=== PATIENT | female | born 1960 | race Two or more races ===

== ENCOUNTER 2017-09-02 02:07 | Emergency (ER) | payer OTHER ==
[2017-09-02 02:39] VITALS: TEMP 97.5; BMI 23.6
--- NOTE | 2017-09-02 02:58 | PDOC ---
History of Present Illness - General Chief Complaint: Blood Pressure Problem Stated Complaint: HIGH BLOOD PRESSURE Time Seen by Provider: 09/02/17 02:27 - History of Present Illness Initial Comments: 09/02/17 02:57 56 yo F with h/o HTN, NIDDM, and HLD who presents with chest pain. Patient reports waking up at 0100 with non radiating left sided burning chest pain, and diaphoresis (now resolved). Pain is non exertional and not associated with SOB. Denies leg swelling, numbness/tingling, vision changes, weakness, hemoptysis, pleuritic chest pain, h/o trauma or surgery within the last 6 weeks. No recent traveling. No h/o PA, Stent, CABG. Denies h/o DVT/PE. Past History - Past Medical History Allergies/Adverse Reactions: Allergies Allergy/AdvReac Type Severity Reaction Status Date / Time No Known Allergies Allergy Verified 09/02/17 02:37 Home Medications: Ambulatory Orders Lisinopril [Prinivil] 10 mg PO DAILY 09/02/17 - Suicide/Smoking/Psychosocial Hx Smoking History: Never smoked Information on smoking cessation initiated: No Hx Alcohol Use: No Drug/Substance Use Hx: No Review of Systems - Review of Systems Comments:: 09/02/17 03:29 GENERAL/CONSTITUTIONAL: No fever or chills. No weakness. HEAD, EYES, EARS, NOSE AND THROAT: No change in vision. No ear pain or discharge. No sore throat.- CARDIOVASCULAR:+ L sided chest pain. No SOB RESPIRATORY: No cough, wheezing, or hemoptysis. GASTROINTESTINAL: No nausea, vomiting, diarrhea or constipation. GENITOURINARY: No dysuria, frequency, or change in urination. MUSCULOSKELETAL: No joint or muscle swelling or pain. No neck or back pain. SKIN: No rash NEUROLOGIC: No headache, vertigo, loss of consciousness, or change in strength/ sensation. ENDOCRINE: No increased thirst. No abnormal weight change HEMATOLOGIC/LYMPHATIC: No anemia, easy bleeding, or history of blood clots. ALLERGIC/IMMUNOLOGIC: No hives or skin allergy. *Physical Exam - Vital Signs Last Vital Signs Temp Pulse Resp BP Pulse Ox 97.5 F L 99 H 16 174/113 99 09/02/17 02:37 09/02/17 02:37 09/02/17 02:37 09/02/17 02:37 09/02/17 02:37 - Physical Exam Comments: 09/02/17 03:29 GENERAL: Awake, alert, and fully oriented, in no acute distress HEAD: No signs of trauma, normocephalic, atraumatic EYES: PERRLA, EOMI, sclera anicteric, conjunctiva clear ENT: Auricles normal inspection, hearing grossly normal, nares patent, oropharynx clear without exudates. Moist mucosa NECK: Normal ROM, supple, no lymphadenopathy, JVD, or masses LUNGS: No distress, speaks full sentences, clear to auscultation bilaterally HEART: Regular rate and rhythm, normal S1 and S2, no murmurs, rubs or gallops, peripheral pulses normal and equal bilaterally. ABDOMEN: Soft, nontender, normoactive bowel sounds. No guarding, no rebound. No masses EXTREMITIES : Normal inspection, Normal range of motion, no edema. No clubbing or cyanosis. NEUROLOGICAL: Cranial nerves II through XII grossly intact. Normal speech, normal gait, no focal sensorimotor deficits SKIN: Warm, Dry, normal turgor, no rashes or lesions noted. ED Treatment Course - LABORATORY CBC & Chemistry Diagram: 09/02/17 03:07 09/02/17 03:07 - RADIOLOGY Radiology Studies Ordered: Category Date Time Status CXRPORT [CHEST X-RAY PORTABLE*] [RAD] Stat Radiology 09/02/17 02:56 Ordered Medical Decision Making - Medical Decision Making 09/02/17 04:00 56 yo F with h/o HTN, NIDDM, and HLD who presents with non radiating left sided burning chest pain, and diaphoresis (now resolved) 1 hour AMBULANCE ATTENDANT. Pain is non exertional and not associated with SOB. Denies leg swelling, weakness, hemoptysis, pleuritic chest pain. Physical exam benign. BP 174/113. No h/o trauma or surgery within the last 6 weeks. No recent traveling. No h/o PA, Stent, CABG. Denies h/o DVT/PE. Pt. is low risk wells score. Will r/o ACS/PA. ED Course: CBC, CMP, Cardiac , Trop, BNP EKG, UA CXR 09/02/17 05:03 CBC, CMP: Unremarkable 09/02/17 05:04 Trop: Neg 09/02/17 05:05 CXR: Unremarkable 09/02/17 05:36 Patient is stable for D/c with return precautions. Advised to f/u with PCP in one week. *DC/Admit/Observation/Transfer Diagnosis at time of Disposition: Atypical chest pain - Discharge Dispostion Disposition: HOME Condition at time of disposition: Stable Admit: No - Referrals Referrals: Bhargav Don MD [Primary Care Provider] - - Patient Instructions Printed Discharge Instructions: How to Monitor Your Blood Pressure at Home, DI for High Blood Pressure Additional Instructions: Please return to the emergency department with new or worsening symptoms. Please follow up with Primary Care Provider within one week. Please continue to take Lisinopril as prescribed for HTN. - Post Discharge Activity - Attestations Physician Attestion: 09/02/17 05:38 I attest to the documentation in this note.
[2017-09-02] MEDS ORDERED: ASPIRIN COATED 81 MG TABLET.EC PO SCH (03:15)
[2017-09-02 03:19] LABS: BASOPHIL 0.6 % (0-2.0); EOSINOPHIL 0.9 % (0-4.5); MCH 28.8 pg (25.7-33.7); MCHC 33.6 g/dl (32.0-36.0); MEAN CELL VOLUME 85.8 fl (80-96); MEAN PLT VOLUME 8.8 fl (7.5-11.1); NEUTROPHILS 52.7 % (42.8-82.8); PLATELET COUNT 245 K/MM3 (134-434); RDW 13.7 % (11.6-15.6); WHITE BLOOD COUNT 8.3 K/mm3 (4.0-10.0)
[2017-09-02 03:47] LABS: INR 0.91 (0.82-1.09); PROTHROMBIN TIME (PATIENT) 10.3 SEC (9.98-11.88)
[2017-09-02] MEDS ORDERED: ASPIRIN COATED 81 MG TABLET.EC ONE (03:55)
[2017-09-02 04:02] LABS: ALBUMIN 4.3 g/dl (3.4-5.0); ALK PHOS 80 U/L (45-117); ANION GAP 8 (8-16); BILIRUBIN,TOTAL 0.5 mg/dL (0.2-1.0); CALCIUM 9.6 mg/dL (8.5-10.1); CO2 28 mmol/L (21-32); CREATININE 0.6 mg/dL (0.55-1.02); GLUCOSE,RANDOM 112 mg/dL (74-106); SGOT/AST 31 U/L (15-37); SGPT/ALT 37 U/L (12-78); TOT PROT 7.9 g/dl (6.4-8.2)
[2017-09-02 04:07] LABS: CPK 157 IU/L (26-192); TROPONIN I < 0.02 ng/ml (0.00-0.05)
[2017-09-02 05:56] VITALS: BP 121/83; PULSE 89
--- NOTE | 2017-09-02 13:59 | EKG ---
Test Reason : Blood Pressure : / mmHG Vent. Rate : 077 BPM Atrial Rate : 077 BPM P-R Int : 164 ms QRS Dur : 094 ms QT Int : 386 ms P-R-T Axes : 000 165 145 degrees QTc Int : 436 ms NORMAL SINUS RHYTHM RIGHT AXIS DEVIATION NONSPECIFIC T WAVE ABNORMALITY ABNORMAL ECG NO PREVIOUS ECGS AVAILABLE Confirmed by VARGAS CURRY, SPENSER ([id number]) on 09/02/2017 1:58:48 PM Referred By: Confirmed By:SPENSER KAYE MD
== END 2017-09-02 05:56 | disposition home or self-care (01) ==
LOC: JER 02:07
DX: R07.89 Other chest pain (principal); I10 Essential (primary) hypertension; E78.00 Pure hypercholesterolemia, unspecified; E11.9 Type 2 diabetes mellitus without complications; Z79.84 Long term (current) use of oral hypoglycemic drugs
CPT/HCPCS: 36415; 71010-TC; 80053; 82550; 82553; 83880; 84484; 85025; 85610; 86850; 86900; 86901; 93005; 93010; 99281-25

== ENCOUNTER 2018-02-14 09:45 | Emergency (ER) | payer OTHER ==
[2018-02-14 09:57] VITALS: BP 157/96; PULSE 77; TEMP 97.8; BMI 24.5
--- NOTE | 2018-02-14 10:46 | PDOC ---
History of Present Illness - General Chief Complaint: Injury Stated Complaint: LT TOE INJURY Time Seen by Provider: 02/14/18 10:32 History Source: Patient Exam Limitations: No Limitations Past History - Travel Traveled outside of the country in the last 30 days: No Close contact w/someone who was outside of country & ill: No - Past Medical History Allergies/Adverse Reactions: Allergies Allergy/AdvReac Type Severity Reaction Status Date / Time No Known Allergies Allergy Verified 02/14/18 09:54 Home Medications: Ambulatory Orders Lisinopril [Prinivil] 10 mg PO DAILY 09/02/17 COPD: No HTN: Yes - Immunization History Immunization Up to Date: Yes - Suicide/Smoking/Psychosocial Hx Smoking History: Never smoked Hx Alcohol Use: No Drug/Substance Use Hx: No Review of Systems - Review of Systems Able to Perform ROS?: Yes Comments:: 02/14/18 10:46 CONSTITUTIONAL: Absent: fever, chills, diaphoresis, generalized weakness, malaise, loss of appetite HEENT: Absent: rhinorrhea, nasal congestion, throat pain, throat swelling, difficulty swallowing, mouth swelling, ear pain, eye pain, visual Changes CARDIOVASCULAR: Absent: chest pain, loss of consciousness, palpitations, irregular heart rate, peripheral edema RESPIRATORY: Absent: cough, shortness of breath, dyspnea with exertion, orthopnea, wheezing, stridor, hemoptysis GASTROINTESTINAL: Absent: abdominal pain, abdominal distension, nausea, vomiting, diarrhea, constipation, melena, hematochezia GENITOURINARY: Absent: dysuria, frequency, urgency, hesitancy, hematuria, flank pain, genital pain MUSCULOSKELETAL: Absent: myalgia, arthralgia, joint swelling SKIN: Absent: rash, itching, pallor HEMATOLOGIC/IMMUNOLOGIC: Absent: easy bleeding, easy bruising, lymphadenopathy, frequent infections ENDOCRINE: Absent: unexplained weight gain, unexplained weight loss, heat intolerance, cold intolerance NEUROLOGIC: Absent: headache, focal weakness or paresthesias, dizziness, unsteady gait, seizure, mental status changes, bladder or bowel incontinence PSYCHIATRIC: Absent: anxiety, depression, suicidal or homicidal ideation, hallucinations. Is the patient limited Indonesian proficient: No *Physical Exam - Vital Signs Last Vital Signs Temp Pulse Resp BP Pulse Ox 97.8 F 77 18 157/96 98 02/14/18 09:54 02/14/18 09:54 02/14/18 09:54 02/14/18 09:54 02/14/18 09:54 - Physical Exam Comments: 02/14/18 10:46 GENERAL: Well developed, well nourished. Awake and alert. No acute distress. HEENT: Normocephalic, atraumatic. PERRLA, EOMI. No conjunctival pallor. Sclera are non- icteric. Moist mucous membranes. Oropharynx is clear. NECK: Supple. Full ROM. No JVD. Carotid pulses 2+ and symmetric, without bruits. No thyromegaly. No lymphadenopathy. CARDIOVASCULAR: Regular rate and rhythm. No murmurs, rubs, or gallops. Distal pulses are 2+ and symmetric. PULMONARY: No evidence of respiratory distress. Lungs clear to auscultation bilaterally. No wheezing, rales or rhonchi. ABDOMINAL: Soft. Non-tender. Non-distended. No rebound or guarding. No organomegaly. Normoactive bowel sounds. MUSCULOSKELETAL Normal range of motion at all joints. No bony deformities or tenderness. No CVA tenderness. EXTREMITIES: No cyanosis. No clubbing. No edema. No calf tenderness. SKIN: Warm and dry. Normal capillary refill. No rashes. No jaundice. NEUROLOGICAL: Alert, awake, appropriate. Cranial nerves 2-12 intact. No deficits to light touch and temperature in face, upper extremities and lower extremities. No motor deficits in the in face, upper extremities and lower extremities. Normoreflexic in the upper and lower extremities. Normal speech. Toes are down- going bilaterally. Gait is normal without ataxia. PSYCHIATRIC: Cooperative. Good eye contact. Appropriate mood and affect. ED Treatment Course - RADIOLOGY Radiology Studies Ordered: Category Date Time Status FOOT-LEFT [RAD] Stat Radiology 02/14/18 10:28 Ordered *DC/Admit/Observation/Transfer Diagnosis at time of Disposition: Bruised toe Qualifiers: Encounter type: initial encounter Toe: lesser toe Damage to nail status: without damage Laterality: left Qualified Code(s): S90.122A - Contusion of left lesser toe(s) without damage to nail, initial encounter - Discharge Dispostion Condition at time of disposition: Stable Admit: No - Referrals Referrals: Bhargav Don MD [Primary Care Provider] - - Patient Instructions Printed Discharge Instructions: DI for Toe Sprain Additional Instructions: Your x-ray was negative for fracture today. Please wear the hard shoe to protect the toe. Please take naproxen 500 mg twice a day to help with pain. Ice the foot for twenty minute intervals Follow up with orthopedics if your symptoms do not improve Return to the ED if you have worsening pain, fevers, or have any changes in your symptoms - Post Discharge Activity Forms/Work/School Notes: Back to Work
[2018-02-14] MEDS ORDERED: NAPROXEN 500 MG TABLET (FP) PO ONE (11:00)
[2018-02-14] MEDS ORDERED: NAPROXEN 500 MG TABLET (FP) ONE (11:09)
== END 2018-02-14 12:12 | disposition home or self-care (01) ==
LOC: JERFT 09:45
DX: S90.122A Contusion of left lesser toe(s) without damage to nail, initial encounter (principal); X58.XXXA Exposure to other specified factors, initial encounter; Y93.89 Activity, other specified; Y92.9 Unspecified place or not applicable
CPT/HCPCS: 73630-TC-LT; 99281-25

== ENCOUNTER 2018-09-19 06:09 | Day surgery (SDC) | payer OTHER ==
[2018-09-15 15:06] VITALS: BMI 25.3
[2018-09-19] MEDS ORDERED: PROPOFOL 20 ML ONE ×2 (07:05)
[2018-09-19] MEDS ORDERED: ONDANSETRON 4 MG/2 ML VIAL ONE (07:06)
[2018-09-19] MEDS ORDERED: SUCCINYLCHOLINE CHLORIDE 200 MG/10 ML VIAL ONE (07:06)
[2018-09-19] MEDS ORDERED: KETOROLAC TROMETHAMINE 30 MG/1 ML VIAL ONE ×2 (07:06→07:45)
[2018-09-19] MEDS ORDERED: DEXAMETHASONE SOD PHOSPHATE 4 MG/1 ML VIAL ONE (07:06)
[2018-09-19] MEDS ORDERED: ceFAZolin SODIUM 1 GM VIAL ONE (07:06)
[2018-09-19] MEDS ORDERED: LIDOCAINE HCL 2% (20ML MULTI-DOSE VIAL) NR ONE (07:18)
[2018-09-19] MEDS ORDERED: SEVOFLURANE 250 ML BTL ONE (07:24)
[2018-09-19] MEDS ORDERED: MIDAZOLAM HCL 2 MG/2 ML SINGLE DOSE VIAL ONE ×2 (07:25)
[2018-09-19] MEDS ORDERED: ONDANSETRON 4 MG/2 ML VIAL IVPUSH PRN (07:33)
[2018-09-19] MEDS ORDERED: oxyCODONE HCL 5 MG TABLET PO PRN (07:33)
[2018-09-19] MEDS ORDERED: LACTATED RINGERS SOLUTION 1,000 ML IV SCH (07:45)
[2018-09-19] MEDS ORDERED: LIDOCAINE HCL 2% (50ML VIAL) INF ONE (07:58)
[2018-09-19 09:37] VITALS: TEMP 97.8
[2018-09-19 09:58] VITALS: BP 138/77; PULSE 75
--- NOTE | 2018-09-19 13:55 | OP ---
DATE OF OPERATION: 09/19/2018 SURGEON: Fredo Branham MD ASSISSTANT: ELOY Bailey PREOPERATIVE DIAGNOSIS: 1. Right thumb-finger tenosynovitis/ trigger-finger. 2. Right middle finger tenosynovitis/trigger-finger. 3. Right ring finger tenosynovitis/trigger-finger. POSTOPERATIVE DIAGNOSIS: 1. Right thumb-finger tenosynovitis/ trigger-finger. 2. Right middle finger tenosynovitis/trigger-finger. 3. Right ring finger tenosynovitis/trigger-finger. PROCEDURE: 1. Release of right thumb trigger-finger. 2. Release of right middle finger trigger-finger. 3. Release of right ring finger trigger-finger. FINDINGS: Thickened A1 grey with pressure on the flexor tendons of the thumb, middle, and ring fingers of the right hand with fraying of the tendon. DESCRIPTION OF PROCEDURE: Informed consent was obtained, in the operating room where the right upper extremity was prepped and draped in a sterile fashion. A tourniquet was placed on the upper arm and inflated to 250 mmHg. A horizontal incision was made in the area of the thumb at the crease metacarpo-phalangeal joint. A1 grey was identified, incised, extended proximally and distally releasing the A1 grey. A curved hemostat was placed around the tendons, noted to have minor fraying, which was debrided. Wounds were irrigated with copious amounts of irrigation, closed with 5-0 nylon single interrupted sutures. The middle and ring fingers were done in the same manner. Incisions were made over the A1 pulleys at both the middle and ring fingers. A1 pulleys were incised and extended proximally and distally using blunt tenotomy scissors, and minor fraying of the tendons was debrided with a curved hemostat showing no longer impingement. Wounds were irrigated with copious amounts of irrigation, closed with 5-0 nylon single interrupted sutures. FREDO BRANHAM M.D. JUAN [id number]
== END 2018-09-19 10:00 | disposition home or self-care (01) ==
LOC: FASU 06:09
PROVIDERS: ATTEND Orthopaedic Surgery
PROC: 0LN70ZZ Release Right Hand Tendon, Open Approach (ICD-10-PCS; 2018-09-19)
PROC: 0LN70ZZ Release Right Hand Tendon, Open Approach (ICD-10-PCS; 2018-09-19)
PROC: 0LN70ZZ Release Right Hand Tendon, Open Approach (ICD-10-PCS; principal; 2018-09-19 07:30)
DX: M65.311 Trigger thumb, right thumb (principal); M65.331 Trigger finger, right middle finger; M65.341 Trigger finger, right ring finger
CPT/HCPCS: 94760

== ENCOUNTER 2023-04-02 18:55 | Emergency (ER) | payer OTHER ==
[2023-04-02 19:03] VITALS: BP 168/91; PULSE 79; RESP 16; TEMP 98.1; BMI 25.4
== END 2023-04-02 22:02 | disposition home or self-care (01) ==
LOC: JERFT 18:55
DX: R42 Dizziness and giddiness (principal); G44.209 Tension-type headache, unspecified, not intractable; S09.90XA Unspecified injury of head, initial encounter; W18.30XA Fall on same level, unspecified, initial encounter
CPT/HCPCS: 70450-TC; 99284-25